=== PATIENT | male | born 1960 | race African-American/Black ===

== ENCOUNTER 2021-01-27 23:21 | Emergency (ER) | payer OTHER ==
[2021-01-27] MEDS ORDERED: Sulfameth/Trimethoprim DS 800-160mg TAB ONE (23:40)
== END 2021-01-27 23:45 | disposition home or self-care (01) ==
LOC: BURERS 23:21
DX: S80.861A Insect bite (nonvenomous), right lower leg, initial encounter (principal); L08.9 Local infection of the skin and subcutaneous tissue, unspecified; I10 Essential (primary) hypertension; F17.200 Nicotine dependence, unspecified, uncomplicated; W57.XXXA Bitten or stung by nonvenomous insect and other nonvenomous arthropods, initial encounter
CPT/HCPCS: 99282